=== PATIENT | female | born 1975 | race Caucasian/White ===

== ENCOUNTER 2016-08-30 17:48 | Emergency (ER) | payer BC ==
[2016-08-30 17:57] VITALS: BP 136/85; BMI 28.3
--- NOTE | 2016-08-30 18:32 | DR.EXTPAIN ---
HPI - Time seen Time seen: 18:25 - PCP Primary Care Physician: DR. 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; unable to extend the forearm; took three ibu with decent relief but pain worsening as day progresses - Complaint/Symptoms Chief Complaint:: PT STATES " I WAS RUNNING IN THE YARD AND LOST MY FOOTING AND FELL ON A CEMENT PATIO AND I USED MY LEFT ARM TO STOP MY FALL" Self Treatment fo Chief Complaint: ICE, MOTRIN - Nurses notes reviewed Nurses Notes Review: Yes - Source History Provided: Patient - Mode of arrival Mode of Arrival: Ambulatory - Timing Onset of Chief Complaint: 08/30/16 PMH - PMH Past Medical History: No Past Surgical History: Yes Surgical History: - Family History History of Family Medical Conditions: No - Social History Does patient currently use any type of tobacco product: No Have you used tobacco products in the last 12 months: No Type of Tobacco Use: None Does any household member use tobacco: No Alcohol Use: None Do you use any recreational Drugs:: No Lives With: Family Lives Where: Home - infectious screening In the last 2 months have you had wt loss of >10#?: NO Have you had fever, night sweats or hemotysis?: No Have you traveled outside the country in the last 6 months?: No Isolation: Standard ROS - Review of Systems Constitutional: No Symptoms Reported Respiratoy: No Symptoms Reported Cardiovascular: No Symptoms Reported Gastrointestinal/Abdominal: No Symptoms Reported Musculoskeletal: See HPI Integumentary: No Symptoms Reported PE - Vital Signs Vitals: Temperature 97.8 F Pulse Rate 70 Respiratory Rate 22 Blood Pressure 136/85 O2 Sat by Pulse Oximetry 10 - General Limitations: No Limitations General Appearance: Alert - Head Head Exam: Normal Inspection - Eyes Eye exam: Normal Appearance - Chest Chest Inspection: Normal Inspection - Respiratory Respiratory Exam: Bilateral Clear to Auscultation - Cardiovascular Cardiovascular Exam: Regular Rate - Upper Extremities Elbow Exam: Tenderness (pain with extension limiting rom; tender lateral epicondyle) - Diagnosis Discharge Problem: Fracture of radial neck, left, closed Qualifiers: Encounter type: initial encounter Fracture alignment: nondisplaced Qualified Code(s): S52.135A - Nondisplaced fracture of neck of left radius, initial encounter for closed fracture - Discharge Plan Disposition: HOME, SELF-CARE Condition: Stable Prescriptions: Oxycodone/Acet 5 mg/325 mg [PERCOCET 5/325 MG *] 1 tab PO Q4-6H PRN #20 tab PRN Reason: Severe Pain - Follow ups/Referrals Follow ups/Referrals: SHELLEY BARBOSA [Primary Care Provider] - 3 days - Instructions Instructions: Radial Head Fracture, [id number]
--- NOTE | 2016-08-30 19:08 | RAD ---
HISTORY: Pain Study: Left elbow series Comparison: None Findings: There is a subtle area of cortical regularity along the radial neck region. The radial head remains in good position. The ulna is intact. There is a moderate joint effusion. The humerus is unremarkabl e. IMPRESSION: Findings suspicious for a slightly impacted radial neck fracture with a moderate joint effusion. [facility] orthopedic followup. Reported By:
[2016-08-30] MEDS ORDERED: PERCOCET TAB 5/325 MG PO ONE (19:42)
[2016-08-30] MEDS ORDERED: PERCOCET TAB 5/325 MG ONE (19:43)
== END 2016-08-30 19:48 | disposition home or self-care (01) ==
LOC: ER 18:06
DX: S52.135A Nondisplaced fracture of neck of left radius, initial encounter for closed fracture (principal); W19.XXXA Unspecified fall, initial encounter; Y92.9 Unspecified place or not applicable
CPT/HCPCS: 29105; 73070; 99282; 99283